=== PATIENT | male | born 1935 | race Caucasian/White ===

== ENCOUNTER 2018-08-04 14:32 | Inpatient (IN) | payer MEDICARE ==
[~2018-08-04] VITALS: Ht 152.4 cm; Wt 107.0 kg
[2018-08-04 14:39] VITALS: BP 127/66
[2018-08-04] MEDS ORDERED: LASIX 40 MG TAB40 M2 PO (14:45)
[2018-08-04] MEDS ORDERED: CARDIZEM CD120 MG PO (14:45)
[2018-08-04] MEDS ORDERED: OMEPRAZOLE 20 M20 M1 PO (14:46)
[2018-08-04] MEDS ORDERED: LOPRESSOR50 PO (14:46)
[2018-08-04] MEDS ORDERED: FLOMAX0.4 MG PO (14:46)
[2018-08-04] MEDS ORDERED: LISINOPRIL20 MG PO (14:46)
[2018-08-04] MEDS ORDERED: METFORMIN HCL500 MG PO (14:46)
[2018-08-04] MEDS ORDERED: SIMVASTATIN40 MG PO (14:46)
[2018-08-04] MEDS ORDERED: XARELTO20 MG PO (14:47)
[2018-08-04] MEDS ORDERED: ASPIR 8181 MG PO (14:47)
[2018-08-04] MEDS ORDERED: POTASSIUM20 PO (14:47)
[2018-08-04] MEDS ORDERED: OMEGA-31000 M1 PO (14:47)
[2018-08-04 15:12] LABS: ABSOLUTE LYMPHOCYTES 0.9 thou/uL (0.8-5.3); ABSOLUTE MONOCYTES 0.5 thou/uL (0.0-1.2); ABSOLUTE NEUTROPHILS 6.6 thou/uL (1.6-8.1); BASOPHILS 0.3 %; EOSINOPHILS 0.6 %; HEMATOCRIT 43.9 % (42.0-52.0); HEMOGLOBIN 14.9 gm/dL (14.0-18.0); LYMPHOCYTES 11.3 %; MCH 31.2 pg (26.0-34.0); MCHC 33.9 g/dL (28.0-37.0); MCV 92.2 fL (80.0-100.0); MONOCYTES 5.9 %; MPV 9.6 fl. (7.2-11.1); NUCLEATED RBCS 0 /100WBC; PLATELET COUNT* 172 thou/uL (150-400); POLYS 81.9 %; RBC 4.76 mil/uL (4.50-6.00); RDW-CV 13.4 % (10.5-14.5)
[2018-08-04 15:20] LABS: ANION GAP 10 mmol/L (7-16); BUN 20 mg/dL (7-18); CALCIUM 9.1 mg/dL (8.5-10.1); CHLORIDE 103 mmol/L (98-107); CO2 25 mmol/L (21-32); CREATININE 1.3 mg/dL (0.6-1.3); GLUCOSE 134 mg/dL (70-99); POTASSIUM 4.3 mmol/L (3.5-5.1); SODIUM 138 mmol/L (136-145)
[2018-08-04 15:22] LABS: APTT 25.2 Seconds (25.0-31.3); PROTIME 10.1 Seconds (9.20-11.50)
[2018-08-04 15:27] LABS: ALKALINE PHOSPHATASE 59 U/L (46-116); LIPASE 85 U/L (73-393); SGOT 21 U/L (15-37); SGPT 20 U/L (30-65); TOTAL BILIRUBIN 0.4 mg/dL (<0.1-1.0); TOTAL PROTEIN 7.5 g/dL (6.4-8.2); TROPONIN-I LEVEL <0.06 ng/mL (<0.06)
[2018-08-04 16:07] LABS: URINE BILIRUBIN NEGATIVE (Negative); URINE BLOOD NEGATIVE (Negative); URINE CLARITY CLEAR; URINE COLOR YELLOW; URINE GLUCOSE-RANDOM NEGATIVE (Negative); URINE KETONES NEGATIVE (Negative); URINE LEUKOCYTES-REFLEX NEGATIVE (Negative); URINE NITRITE-REFLEX NEGATIVE (Negative); URINE PROTEIN NEGATIVE (Negative); URINE SPECIFIC GRAVITY 1.015 (1.005-1.030); URINE UROBILINOGEN 0.2 E.U./dl (0.2-1.0)
[2018-08-04 19:20] VITALS: BP 129/80
[2018-08-04 20:00] VITALS: BP 160/69
[2018-08-05] VITALS: BP 133/95
[2018-08-05 04:00] VITALS: BP 113/58
[2018-08-05 06:08] LABS: ABSOLUTE EOSINOPHILS 0.1 thou/uL (0.0-0.7); ABSOLUTE LYMPHOCYTES 1.3 thou/uL (0.8-5.3); ABSOLUTE MONOCYTES 0.5 thou/uL (0.0-1.2); ABSOLUTE NEUTROPHILS 3.8 thou/uL (1.6-8.1); BASOPHILS 0.4 %; EOSINOPHILS 2.3 %; HEMATOCRIT 40.6 % (42.0-52.0); HEMOGLOBIN 13.5 gm/dL (14.0-18.0); LYMPHOCYTES 22.2 %; MCH 31.1 pg (26.0-34.0); MCHC 33.4 g/dL (28.0-37.0); MCV 93.2 fL (80.0-100.0); MONOCYTES 8.8 %; MPV 9.5 fl. (7.2-11.1); NUCLEATED RBCS 0 /100WBC; PLATELET COUNT* 168 thou/uL (150-400); POLYS 66.3 %; RBC 4.35 mil/uL (4.50-6.00); RDW-CV 13.6 % (10.5-14.5); WBC 5.7 thou/uL (4.0-11.0)
[2018-08-05 06:23] LABS: CALCIUM 8.3 mg/dL (8.5-10.1); CREATININE 1.2 mg/dL (0.6-1.3); MAGNESIUM 1.6 mg/dL (1.8-2.4); PHOSPHORUS* 3.7 mg/dL (2.5-4.9); POTASSIUM 4.1 mmol/L (3.5-5.1)
[2018-08-05 08:00] VITALS: BP 101/66
[2018-08-05 12:11] VITALS: BP 106/50
--- NOTE | 2018-08-05 14:29 | EKG ---
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
[2018-08-05 16:00] VITALS: BP 114/45
--- NOTE | 2018-08-05 16:30 | 2DMMODE ---
[place] [address] 2 D/M-MODE ECHOCARDIOGRAM Name: REMY FRANK Room: [address] IN [facility]#: [id number] Admission: 08/04/18 Attend Phys: Fouzia Mcguire MD Discharge: Date of : 39 Date of Service: 08/05/18 1629 Report #: [id number] THIS REPORT FOR: //name// APPROVED REPORT Study performed: 08/05/2018 13:19:38 EXAM: Comprehensive 2D, Doppler, and color-flow Echocardiogram Patient Location: In-Patient Room #: 201 Status: routine BSA: 2.20 HR: 62 bpm BP: 101/66 mmHg Other Information Study Quality: Fair Indications Atrial Fibrillation 2D Dimensions IVSd: 13.61 (7-11mm) LVOT Diam: 20.66 (18-24mm) LVDd: 55.36 mm PWd: 9.29 (7-11mm) Ascending Ao: 29.34 (22-36mm) LVDs: 27.70 (25-40mm) Aortic Root: 28.25 mm Volumes Left Atrial Volume (Systole) LA ESV Index: 20.00 mL/m2 Aortic Valve AoV Peak Goran.: 1.25 m/s AO Peak Gr.: 6.22 mmHg LVOT Max P.14 mmHg AO Mean Gr.: 3.29 mmHg LVOT Mean P.99 mmHg LVOT Max V: 1.02 m/s AO V2 VTI: 21.99 cm LVOT Mean V: 0.64 m/s NILSA (VTI): 3.46 cm2 LVOT V1 VTI: 22.73 cm Mitral Valve E/A Ratio: 1.02 MV Decel. Time: 221.70 ms MV E Max Goran.: 0.72 m/s MV PHT: 64.29 [place] [address] 2 D/M-MODE ECHOCARDIOGRAM Name: REMY FRANK Room: [address] IN .R.#: [id number] Admission: 08/04/18 Attend Phys: Fouzia Mcguire MD Discharge: Date of : 39 Date of Service: 08/05/18 1629 Report #: [id number] MVA (PHT): 3.42 cm2 TDI E/Lateral E': 12.00 E/Medial E': 8.00 Medial E' Goran.: 0.09 m/s Lateral E' Goran.: 0.06 m/s Pulmonary Valve PV Peak Goran.: 0.88 m/s PV Peak Gr.: 3.10 mmHg Tricuspid Valve RAP Estimate: 5.00 mmHg TR Peak Gr.: 21.01 mmHg RVSP: 26.01 mmHg PA Pressure: 26.01 mmHg Left Ventricle The left ventricle is normal size. There is normal LV segmental wall motion. There is normal left ventricular wall thickness. Left ventricular systolic function is normal. LVEF is 60-65%. Transmitral Doppler flow pattern suggests impaired LV relaxation. Right Ventricle The right ventricle is normal size. The right ventricular systolic function is normal. Atria The left atrium size is normal. The right atrium size is normal. Aortic Valve The aortic valve is normal in structure. No aortic regurgitation is present. There is no aortic valvular stenosis. Mitral Valve The mitral valve is normal in structure. There is no mitral valve regurgitation noted. No evidence of mitral valve stenosis. Tricuspid Valve The tricuspid valve is normal in structure. Mild tricuspid regurgitation. No pulmonary hypertension. Pulmonic Valve The pulmonary valve is normal in structure. There is no pulmonic valvular regurgitation[place] [address] 2 D/M-MODE ECHOCARDIOGRAM Name: REMY FRANK Room: [address] IN [facility]#: [id number] Admission: 08/04/18 Attend Phys: Fouzia Mcguire MD Discharge: Date of : 39 Date of Service: 08/05/18 1629 Report #: [id number] The aortic root is normal in size. IVC is normal in size and collapses >50% with inspiration. Pericardium There is no pericardial effusion. <Conclusion> The left ventricle is normal size. There is normal left ventricular wall thickness. Left ventricular systolic function is normal. LVEF is 60-65%. Transmitral Doppler flow pattern suggests impaired LV relaxation. Mild tricuspid regurgitation. No pulmonary hypertension. IVC is normal in size and collapses >50% with inspiration. <ELECTRONICALLY SIGNED> By: Ish Catherine MD, FACC 08/05/18 1629 1629 1629 Ish Catherine MD, FACC /INF
[2018-08-05 20:00] VITALS: BP 121/48
[2018-08-06] VITALS (18 sets, daily range): BP systolic 98–123; BP diastolic 40–66
[2018-08-06 06:13] LABS: CALCIUM 8.5 mg/dL (8.5-10.1); CREATININE 1.6 mg/dL (0.6-1.3)
--- NOTE | 2018-08-06 10:04 | CON ---
[address] [address] CONSULTATION Name: REMY FRANK Room: [address] IN M.R.#: [id number] Admission: 08/04/18 Attend Phys: Fouzia Mcguire MD Discharge: Date of : 37 Report #: [id number] THIS REPORT FOR: //name// CC: LISA physician/PCP Fouzia Mcguire DATE OF SERVICE: 08/05/2018 HISTORY OF PRESENT ILLNESS: This is an 83-year-old male patient who was evaluated by me for any neurological etiology for the patient's syncope. He indicated that he had an episode of syncope about 3 months ago. He went to [facility]. They told him what he is describing is that the upper portion of his heart is beating too fast and the lower portion cannot keep up with that. He has a known history of atrial fibrillation and I suspect that is what he is describing, although it can also be supraventricular tachycardia. He has already been seen by Cardiology. He does not remember anything about these episodes and there is no firsthand witness who was present, so most of the history is from the records. His lives in a [place] and he was bringing her home, he had some injury to the right leg and then he passed out. He said he had 6 episodes yesterday. Some of the other records indicate that it may be less than that. Does have a history of heart failure, diabetes, hypertension. He denies any prior history of stroke, but he does have atrial fibrillation and he is on chronic anticoagulation for that as I understand. I carried out 14-point review of systems and this patient is not complaining of any new eye, ENT, respiratory, GI, , musculoskeletal, constitutional, dermatological, hematological, psychiatric, throat, allergic symptom associated with present symptomatology. PAST MEDICAL HISTORY: Positive for atrial fibrillation. FAMILY HISTORY: Negative for early age stroke. SOCIAL HISTORY: He does not smoke or drink any alcohol. PHYSICAL EXAMINATION: Indicate that the patient is alert, responsive, able to follow simple and complex command. His speech, concentration, fund of knowledge and memory is at his baseline. Cranial nerve examination 2-12 looks unremarkable. His reflexes are diminished. Otherwise, strength, sensation, reflexes and tone is symmetrical. He is weak in the leg and has some difficulty walking, but he indicates that is his baseline. His pulses on the right side in the leg are difficult to feel, but he indicates he had fracture there and this is going on since that time. No cerebellar sign. I could not have a very good look at the patient's fundus. There is no meningeal sign. He is a well-developed individual who does not have any dysmorphic features of eyes, ears and face. There is no edema, cyanosis or jaundice. Heart appears irregular. There is no respiratory difficulty. [place] [address] CONSULTATION Name: REMY FRANK MICHELET Room: [address] IN M.R.#: [id number] Admission: 08/04/18 Attend Phys: Fouzia Mcguire MD Discharge: Date of : 37 Report #: [id number] rhonchi. Blood pressure is 101/66. Pulse is 84 and temperature is 97.8. LABORATORY DATA: Indicate a white count of 5.7. His sodium is normal. He did have a carotid Doppler that was unremarkable. He did have a CT scan of the head, which showed chronic changes, but no acute changes. He indicates that there is no contraindication for MRI. IMPRESSION: It would appear that the most likely etiology for the patient's symptoms is cardiac. He is already being worked up for that. I think it is reasonable to exclude any neurological etiology, especially because the symptoms are not classical for cardiac etiology either, so I will go ahead and do an MRA in this patient and do an EEG. If that is also negative, then the emphasis should be to look at the Cardiology etiology more in this patient. RECOMMENDATION: I discussed above recommendation with him. He wants to follow that plan and we will follow this recommendation. <ELECTRONICALLY SIGNED> By: Uziel Lidner MD 08/06/18 1004 1154 [id number] Linder MD /nt
--- NOTE | 2018-08-06 10:04 | EEG ---
[address] [address] EEG STUDY REPORT Name: MONIKAREMY Room: [address] IN M.R.#: [id number] Admission: 08/04/18 Attend Phys: Fouzia Mcguire MD Discharge: Date of : 37 Report #: [id number] THIS REPORT FOR: //name// CC: FAM physician/PCP Fouzia Mcguire DATE OF SERVICE: 08/05/2018 This patient is being evaluated for episodes of syncope. EEG was done by placing the electrode by standard 10-20 system of electrode placement. Both referential and sequential montages were used for recording. Background activity in this patient's EEG is about 11 Hz and 30 microvolt. It is a symmetrical activity. Photic stimulation was unremarkable. The patient went to sleep that is associated with bilaterally symmetrical sleep spindle and vertex sharp waves. Throughout the record, no active epileptiform activity was noticed. IMPRESSION: This patient's EEG is intermixed with some theta range slowing. That is a nonspecific finding which can occur with drowsiness, effect of psychotropic medication, dementia, etc. No active epileptiform activity was noticed during this record. Thank you very much for this referral. <ELECTRONICALLY SIGNED> By: Uziel Linder MD 08/06/18 1004 1619 Marianna Linder MD /jaleesa
[2018-08-07] VITALS (7 sets, daily range): BP systolic 112–132; BP diastolic 40–50
[2018-08-07 04:55] LABS: CALCIUM 8.2 mg/dL (8.5-10.1); CREATININE 1.5 mg/dL (0.6-1.3); POTASSIUM 4.2 mmol/L (3.5-5.1)
[2018-08-07] MEDS ORDERED: FLECAINIDE ACET50 M2 PO (16:55)
--- NOTE | 2018-08-07 17:17 | PROC ---
[address] [address] PROCEDURE REPORT Name: REMY FRANK Room: [address] IN M.R.#: [id number] Admission: 08/04/18 Attend Phys: Fouzia Mcguire MD Discharge: Date of : 37 Report #: [id number] THIS REPORT FOR: //name// CC: LISA physician/PCP Fouzia Mcguire DATE OF SERVICE: 08/06/2018 INDICATIONS: Head upright tilt table test was requested in this patient with a history of syncope. RESULTS: The patient was placed supine on the tilt table and had a pretest heart rate of 62, blood pressure 98/46. ECG monitoring was performed throughout the procedure. The initial rhythm strip represented sinus rhythm. The patient was then placed in the head upright position at 70 degrees. He remained in this position for 20 minutes. The blood pressure and heart rate remained stable and the patient remained in sinus rhythm with occasional PACs. After 20 minutes, the blood pressure was 100/55 with a heart rate of 64. The patient was then administered nitroglycerin 0.4 mg sublingually. Five minutes later, the patient had a blood pressure of 105/50 with pulse of 58 and was noted to be sinus bradycardia. The patient was then noted to develop sinus bradycardia and had a prolonged pause. He became less responsive and blood pressure noted to be less than 100 systolic. The patient was then placed back into the supine position and had a blood pressure 116/48 with a pulse of 58. The patient was awake and alert at this time. IMPRESSION: 1. Abnormal head upright tilt table test suggestive of neurocardiogenic syncope. 2. Although the patient did not have loss of consciousness, he became less responsive and drowsy during the test. 3. The response was predominantly a negative chronotropic response with a prolonged pause. 4. The patient did develop hypotension after nitroglycerin, suggesting a vaso-depressed response. <ELECTRONICALLY SIGNED> By: Eder Vanegas MD, FACC 08/07/18 1717 1652 [id number] Vanegas MD, FACC /nt
== END 2018-08-07 18:29 | disposition home or self-care (01) | DRG 605 ==
LOC: M.ERS 14:32 → M.2W 16:04 → M.TBA-ER 16:04 → M.2W 19:50
PROVIDERS: Family Medicine; ADMIT Family Medicine
PROC: 0HQLXZZ Repair Left Lower Leg Skin, External Approach (ICD-10-PCS; 2018-08-04)
PROC: 4A02XFZ Measurement of Cardiac Rhythm, External Approach (ICD-10-PCS; principal; 2018-08-07)
PROC: 4A03XB1 Measurement of Arterial Pressure, Peripheral, External Approach (ICD-10-PCS; principal; 2018-08-07)
DX: S81.811A Laceration without foreign body, right lower leg, initial encounter (principal); I13.0 Hypertensive heart and chronic kidney disease with heart failure and stage 1 through stage 4 chronic kidney disease, or unspecified chronic kidney disease; I50.32 Chronic diastolic (congestive) heart failure; K21.9 Gastro-esophageal reflux disease without esophagitis; E11.22 Type 2 diabetes mellitus with diabetic chronic kidney disease; N18.3 Chronic kidney disease, stage 3 (moderate); I48.2 Chronic atrial fibrillation; G47.33 Obstructive sleep apnea (adult) (pediatric); E83.42 Hypomagnesemia; Z79.01 Long term (current) use of anticoagulants; Z79.899 Other long term (current) drug therapy; Z23 Encounter for immunization; Z83.3 Family history of diabetes mellitus; X58.XXXA Exposure to other specified factors, initial encounter; Y93.89 Activity, other specified; Y92.89 Other specified places as the place of occurrence of the external cause; Y99.8 Other external cause status

== ENCOUNTER 2018-08-14 13:45 | Inpatient (IN) | payer MEDICARE ==
[~2018-08-14] VITALS: Ht 175.3 cm; Wt 100.5 kg
--- NOTE | ~2018-08-14 | PROC ---
[address] [address] PROCEDURE REPORT Name: REMY FRANK Room: [address] IN M.R.#: [id number] Admission: 08/14/18 Attend Phys: Eder Vanegas MD, F Discharge: 08/16/18 Date of : 37 Report #: [id number] THIS REPORT FOR: //name// Please see the Cardiac Cath report. By: [id number] Records Staff DEEPA /JOSE ENRIQUE
[~2018-08-14 13:45] MED LIST: ASPIR 8181 MG PO; CARDIZEM CD120 MG PO; FLECAINIDE ACET50 M2 PO; FLOMAX0.4 MG PO; LASIX 40 MG TAB40 M2 PO; LISINOPRIL20 MG PO; LOPRESSOR50 PO; METFORMIN HCL500 MG PO; OMEGA-31000 M1 PO; OMEPRAZOLE 20 M20 M1 PO; POTASSIUM20 PO; SIMVASTATIN40 MG PO; XARELTO20 MG PO
[2018-08-14 16:48] VITALS: BP 126/60
--- NOTE | 2018-08-14 17:36 | EKG ---
[place] [address] ELECTROCARDIOGRAM REPORT Name: MONIKAREMY Room: [address] ADM IN M.R.#: [id number] Admission: 08/14/18 Attend Phys: Eder Vanegas MD, F Discharge: Date of : 37 Report #: [id number] THIS REPORT FOR: //name// [facility] Test Date: 2018-08-14 Test Time: 15:16:50 Pat Name: REMY FRANK Department: Room: [address] Gender: M Mold Shifter: [facility] : 1935 Requested By: Eder Vanegas Order Number: [id number] Reading MD: Ish Catherine Measurements Intervals [place] Rate: 69 P: NV: QRS: 24 QRSD: 102 T: 27 QT: 499 QTc: 535 Interpretive Statements Atrial flutter with predominant 4:1 AV block Borderline prolonged QT interval Compared to ECG 08/04/2018 14:43:46 Atrial fibrillation no longer present Electronically Signed On 08-14-2018 17:36:17 OFFICE RN by Ish Catherine [email or web address] <ELECTRONICALLY SIGNED> By: Ish Catherine MD, [facility] 08/14/18 1736 1516 1516 Ish Catherine MD, [facility] /EPI
[2018-08-14 20:00] VITALS: BP 115/74
[2018-08-15] VITALS: BP 97/51
[2018-08-15 04:00] VITALS: BP 109/43
[2018-08-15 05:20] LABS: URINE BILIRUBIN NEGATIVE (Negative); URINE BLOOD NEGATIVE (Negative); URINE CLARITY CLEAR; URINE COLOR YELLOW; URINE GLUCOSE-RANDOM NEGATIVE (Negative); URINE KETONES NEGATIVE (Negative); URINE LEUKOCYTES NEGATIVE (Negative); URINE NITRITE NEGATIVE (Negative); URINE PROTEIN NEGATIVE (Negative)
[2018-08-15 05:38] LABS: CALCIUM 8.3 mg/dL (8.5-10.1); CREATININE 1.3 mg/dL (0.6-1.3); POTASSIUM 4.2 mmol/L (3.5-5.1)
[2018-08-15 08:18] VITALS: BP 112/46
[2018-08-15 12:29] VITALS: BP 118/53
--- NOTE | 2018-08-15 12:30 | EKG ---
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
[2018-08-15 15:34] VITALS: BP 118/53
--- NOTE | 2018-08-15 15:37 | H ---
[address] [address] HISTORY AND PHYSICAL Name: MONIKAREMY Room: [address] IN Eva.#: [id number] Admission: 08/14/18 Attend Phys: Eder Vanegas MD, F Discharge: Date of : 37 Report #: [id number] THIS REPORT FOR: //name// CC: Eder Del Valle MD DATE OF SERVICE: 08/14/2018 HISTORY OF PRESENT ILLNESS: The patient is an 83-year-old white male who was admitted today after he had a long sinus pause. The history was obtained from the patient as well as his son and some old records. The patient had no previous history of heart disease. He apparently had a stress test years ago. He does exercise on a regular basis. Apparently about 7 months ago, he saw his primary care physician and was noted to have a rapid heartbeat. He apparently was noted to be having atrial fibrillation. He was started on Xarelto and diltiazem for rate control. He was referred to a intelligence manager, but never got around to seeing a intelligence manager. Over the past couple of months, he has had several syncopal spells. The first occurred about 2 months ago when he became diaphoretic, had a brief loss of consciousness. He was taken to [facility] and sent home. Last 08/04, he was apparently on his driveway. He apparently struck his foot against the car door and began to bleed. He then became nauseated with brief loss of consciousness. He apparently fell to the ground. There is no seizure activity. He was brought here to [place] and admitted. He was seen by my nurse practitioner, Val Rodriguez. He underwent an extensive evaluation. He did have a tilt table test and had a negative chronotropic response. He also had an episode of atrial arrhythmia. He was taken off metoprolol and started on flecainide. He was sent home with an event recorder. On the event recorder today, the patient was noted to have an episode of atrial flutter with a controlled ventricular response. He then had a pause lasting over 6 seconds. Sinus bradycardia then returned. He was told to come to the hospital for further evaluation and treatment. Since his discharge 10 days ago, he has had no significant chest pain, shortness of breath, palpitations, fever. PAST MEDICAL HISTORY: Significant for previous removal of skin cancer. He has hypertension, diabetes, hyperlipidemia, sleep apnea, chronic kidney disease. MEDICATIONS: Consists of furosemide for chronic swelling, Cardizem-CD, Flomax, metformin, omeprazole, simvastatin, Xarelto, potassium, flecainide. ALLERGIES: He has no known drug allergies. FAMILY HISTORY: His mother had a heart attack. SOCIAL HISTORY: He is . He and his live in [place], 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 No smoking or alcohol abuse. REVIEW OF SYSTEMS: He has had no history of stroke, asthma, peptic ulcer disease, liver disease. He had a skin cancer removed in the past. No psychiatric illness. No chronic skin condition. He does have chronic swelling of his feet. PHYSICAL EXAMINATION: GENERAL: Revealed an elderly male, lying in bed. He appeared in no distress. VITAL SIGNS: He had a blood pressure of 120/60, pulse 60. He is afebrile. HEENT: He is anicteric. Conjunctivae pink. Mucous membranes moist. NECK: Veins do not appear distended. No carotid bruits. CHEST: Clear to auscultation. CARDIOVASCULAR: Irregular rhythm. ABDOMEN: Soft. EXTREMITIES: Had pitting edema of the lower extremities. SKIN: Cool and dry. NEUROLOGIC: Nonfocal. ECG appeared to show atrial flutter with controlled ventricular response rate. His workup, he had a CT scan of the head done 10 days ago without contrast after a syncopal spell that showed atrophy, but no other abnormalities. His chest x-ray showed normal heart size and clear lung jade. He had a CT scan of the chest using a PE protocol that showed no aortic dissection, no pulmonary embolus, chronic lung changes. Carotid Doppler study showed no significant stenosis. MRI of the head without contrast showed chronic changes, no acute abnormality. LABORATORY DATA: Sodium 140, BUN 23, creatinine 1.5, glucose 107. Liver function studies were normal. TSH 1.6. White blood cell count 5.7, hemoglobin 13.5. Recent urinalysis is negative for glucose, negative leukocytes. Echocardiogram done 10 days ago showed ejection fraction of 60%. IMPRESSION AND RECOMMENDATIONS: 1. Intermittent atrial arrhythmias. The patient has been on flecainide. I would hold the Xarelto for pacemaker. 2. Sick sinus syndrome. The patient with recurrent syncope and pause lasting over 6 seconds. Recommend permanent pacemaker. 3. Hypertension. The patient has been on a calcium chuck and XIMENA inhibitor. 4. Diabetes. 5. Hyperlipidemia. The patient is on a statin drug. [place] [address] [address] HISTORY AND PHYSICAL Name: REMY FRANK Room: [address] IN M.R.#: [id number] Admission: 08/14/18 Attend Phys: Eder Vanegas MD, F Discharge: Date of : 37 Report #: [id number] 6. Sleep apnea. The patient uses CPAP. 7. Chronic edema. Suspect venous insufficiency. <ELECTRONICALLY SIGNED> By: Eder Vanegas MD, FACC 08/15/18 1537 1717 1841Davianh Vanegas MD, FACC /nt
[2018-08-15 20:00] VITALS: BP 142/55
[2018-08-16] VITALS: BP 132/52
[2018-08-16 04:00] VITALS: BP 113/49
[2018-08-16 08:03] VITALS: BP 120/52
[2018-08-16] MEDS ORDERED: DEMADEX20 MG PO (09:47)
[2018-08-16] MEDS ORDERED: KLOR-CON 1010 MEQ PO (09:48)
--- NOTE | 2018-08-16 10:16 | EKG ---
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
--- NOTE | 2018-08-16 10:19 | CARD ---
[address] [address] CARDIAC CATH REPORT Name: REMY FRANK MICHELET Room: [address] IN .#: [id number] Admission: 08/14/18 Attend Phys: Eder Vanegas MD, F Discharge: Date of : 37 Report #: [id number] THIS REPORT FOR: //name// APPROVED REPORT Study performed: 08/15/2018 12:06:49 Patient Status: In-Patient Room #: Event Personnel: Emily Vora RN, SHAWN Lea, Melva Lamar, RTR Exam: Insertion of Dual Chamber Permanent Pacemaker Indications: Sick Sinus Syndrome/Tachy Ricki Syndrome The patient is a 83 year-old male with a history of Syncope. Patient Info Anticoagulant Therapy: xarelto Implanted Devices: dual chamber mri compatible dual chamber pacemaker and leads Procedure The patient underwent informed consent. We discussed the details of the procedure including the risks, which include, but not limited to bleeding, infection, vascular damage, cardiac perforation, and pneumothorax. He understood these risks and was willing to proceed. As such, he was brought to the EP/Cardiac Catheterization laboratory in a fasting and sedated state and prepped and draped in a sterile fashion, received IV antibiotics prior to initiation of the procedure and a venogram was performed showing patency of the left axillary vein. The patient underwent MAC anesthesia, with no anesthesia related complications. The patient was brought to the EP/Cardiac Catheterization laboratory and the left chest and shoulder were prepped and draped in a sterile manner. During this case, Fluoroscopy and visipaque 10cc were used for imaging. The left subclavian region was infiltrated with 2% Lidocaine with Epinephrine subcutaneous anesthesia. A transverse incision was made in the left upper chest cavity. The subcutaneous pocket was formed via blunt dissection. Percutaneous venous access was achieved and an introducer sheath was inserted into the left Subclavian vein. Sheaths were positions using the modified [place] [address] CARDIAC CATH REPORT Name: REMY FRANK Room: [address] IN [facility].#: [id number] Admission: 08/14/18 Attend Phys: Eder Vanegas MD, F Discharge: Date of : 37 Report #: [id number] Through the introducer sheaths the atrial and ventricular lead wires were positioned in the right atrial appendage and right ventricular apex respectively. Utilizing fluoroscopic guidance, the atrial and ventricular lead wires were advanced over the wires and positioned in the right atria and right ventricle respectively. Capturing and sensing thresholds were verified. Pacemaker pocket was irrigated with D-stat flowable solution prior to inserting the generator Electrode Parameters P Wave: 1.8 mv R Wave: 9 mv Atrial Threshold: 1.1 v @ 0.4 ms Ventricular Threshold: 1.0 v @ 0.4 ms Atrial Resistance: 448 ohm Ventricular Resistance: 585 ohm Dual Chamber The atrial and ventricular leads were then secured using 0 silk sutures. The subcutaneous pocket was irrigated with ancef antibiotic solution.The atrial and ventricular leads were attached to the appropriate receptacles on the pulse generator and set screws firmly tightened to insure adequate contact and stability. The lead and pulse generator were placed into the subcutaneous pocket. Sharp and sponge counts were confirmed to be correct. At this time the pocket was closed subcutaneously with a 0 Vicryl and the skin was closed with a 4.0 Vicryl. The operative site was dressed in sterile fashion with skin affix and the patient was transferred to the floor in stable condition. Complications The patient tolerated the procedure well and there were no complications associated with the procedure. Findings Specimens Removed: No Estimated Blood Loss: 5 cc Conclusion successful placement of a dual chamber pacemaker and leads <ELECTRONICALLY SIGNED> By: Eder Vanegas MD, [facility] 08/16/18 1019 1019 [id number] Vanegas MD, FACC /INF
--- NOTE | 2018-08-16 10:37 | D ---
[address] [address] DISCHARGE SUMMARY Name: REMY FRANK Room: [address] IN [place].#: [id number] Admission: 08/14/18 Attend Phys: Eder Vanegas MD, F Discharge: Date of : 37 Report #: [id number] THIS REPORT FOR: //name// CC: Eder Del Valle MD DATE OF SERVICE: 08/16/2018 DISCHARGE DIAGNOSES: 1. Atrial flutter. 2. Sick sinus syndrome. 3. Diabetes. 4. Hypertension. 5. Venous stasis. 6. Sleep apnea. CONSULTANTS: None. PROCEDURES: Placement of a permanent dual chamber pacemaker. HISTORY OF PRESENT ILLNESS: The patient is an 83-year-old white male who was admitted after he was noted to have a long sinus pause on his home monitor. Apparently several months ago, the patient saw his primary care physician and was noted to have a rapid heartbeat. He was started on Xarelto and diltiazem for his heart rate. Recently, the patient has had several syncopal spells. At one point, he was actually taken to the Emergency Room at [place] and sent home. On 08/04/2018, he was on his driveway, he struck his left leg against the car door, which began to bleed. He then had a brief loss of consciousness. He was admitted to [facility] and saw my nurse practitioner, Val Case. A tilt table test, he had near syncope with a negative chronotropic response and a long pause. During his hospitalization, he also had an episode of atrial fibrillation. He was taken off of metoprolol and started on flecainide. He was sent home last week with an event recorder. On the day of admission, the event recorder noticed an episode of atrial flutter with controlled response. He then had a pause lasting over 6 seconds. He was instructed to come to the hospital for further evaluation and treatment. PAST MEDICAL HISTORY: Significant for previous removal of a skin cancer, hypertension, diabetes, hyperlipidemia, sleep apnea, chronic kidney disease, chronic venous stasis. MEDICATIONS: At home consisted of Cardizem-CD, flecainide, lisinopril, metformin, omeprazole, Xarelto, simvastatin, and Flomax. He is no longer on metoprolol, and [place] [address] DISCHARGE SUMMARY Name: REMY FRANK MICHELET Room: [address]#: [id number] Admission: 08/14/18 Attend Phys: Eder Vanegas MD, F Discharge: Date of : 37 Report #: [id number] ALLERGIES: He had no known drug allergies. PHYSICAL EXAMINATION: GENERAL: Elderly male. VITAL SIGNS: Blood pressure 120/60, pulse 60. CHEST: Clear to auscultation. CARDIAC: Irregular rhythm. ABDOMEN: Soft. EXTREMITIES: Lower extremities had pitting edema. DIAGNOSTIC DATA: ECG, atrial flutter with controlled response. CT scan of the head done recently showed only atrophy. Chest x-ray, normal heart size. Carotid Doppler, no significant stenosis. LABORATORY DATA: Sodium 140, BUN 23, creatinine 1.5. Liver function studies were normal. TSH 1.6. Hemoglobin 13.5. Echocardiogram, ejection fraction 60%. HOSPITAL COURSE: The patient was admitted to a monitored bed. On admission, he was noted to be in atrial flutter. He was then continued on his flecainide, although dose was increased to 100 mg twice a day. He converted to sinus rhythm. He did have a pause while on the monitor at the hospital, lasting 1.6 seconds. 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 His Xarelto was held. On the second hospital day, he was taken to the Interventional Radiology room and I implanted a permanent MRI compatible dual chamber Medtronic pacemaker generator with atrial and ventricular leads. He tolerated the procedure well. Followup chest x-ray showed no pneumothorax. He remained atrial paced at 70 beats per minute. Prior to discharge, he was ambulating, had no further complaints. He was discharged to continue his home medications including Cardizem-CD 180 mg a day, flecainide was increased to 100 mg twice a day, lisinopril 20 mg a day, metformin 500 mg twice a day, omeprazole 20 mg a day. He was not to resume his Xarelto 20 mg a day until 48 hours after the pacemaker was inserted. Simvastatin 40 mg a day, Flomax 0.4 mg a day, Lasix 20 mg a day, potassium 20 mEq a day. He was discharged to return under the care of Dr. Del Valle for routine medical care including management of his diabetes. He is not to lift the left arm above his head. He was sent home with a transmitter to check his pacemaker from home every night at 2:00 a.m. He was not to shower for 48 hours after the pacemaker was placed. Skin Affix was placed over the incision. He was to call my office if he had recurrent syncope, palpitations, bleeding or evidence of infection. He is scheduled to see me in the Cardiology Clinic on 09/04/2018 for pacemaker followup. His prognosis is guarded due to his multiple medical problems. At the time of discharge, he was ambulating with assistance and had a [facility] [address] [place] [address] DISCHARGE SUMMARY Name: REMY FRANK Room: [address] IN [facility]#: [id number] Admission: 08/14/18 Attend Phys: Eder Vanegas MD, F Discharge: Date of : 37 Report #: [id number] blood pressure of 110/60, pulse is 80 and he was atrial paced. He was to have a visiting nurse come to the home to check on his medication compliance. <ELECTRONICALLY SIGNED> By: Eder Vanegas MD, FACC 08/16/18 1037 0859 [id number] Vanegas MD, FACC /nt
[2018-08-16] MEDS ORDERED: ACETAMINOPHEN-1 EAC1 PO (11:19)
--- NOTE | 2018-08-22 12:33 | EKG ---
[place] [address] ELECTROCARDIOGRAM REPORT Name: REMY FRANK Room: [address] IN M.R.#: [id number] Admission: 08/14/18 Attend Phys: Eder Vanegas MD, F Discharge: 08/16/18 Date of : 37 Report #: [id number] THIS REPORT FOR: //name// [facility] ED Test Date: 2018-08-20 Test Time: 15:42:06 Pat Name: REMY FRANK Department: Room: Gender: Cone Cleaner: Cristopher VALDES : 1935 Requested By: Pee Espinosa Order Number: [id number] MD: Fausto Rivera Measurements Intervals [place] Rate: 79 P: MO: 201 QRS: 17 QRSD: 99 T: 61 QT: 376 QTc: 432 Interpretive Statements Atrial-paced rhythm Baseline wander in lead(s) I Compared to ECG 08/16/2018 07:38:33 Atrial premature complex(es) no longer present Electronically Signed On 08-22-2018 12:33:33 MEAT TEAM MEMBER by Fausto Rivera [email or web address] <ELECTRONICALLY SIGNED> By: Fausto Rivera MD, FACC 08/22/18 1233 1542 1542 Fausto Rivera MD, FAC /EPI
== END 2018-08-16 13:44 | disposition home health service (06) | DRG 243 ==
LOC: M.2W 13:45
PROVIDERS: ADMIT Internal Medicine Cardiovascular Disease
PROC: 02HK3JZ Insertion of Pacemaker Lead into Right Ventricle, Percutaneous Approach (ICD-10-PCS; principal; 2018-08-15)
PROC: 02H63JZ Insertion of Pacemaker Lead into Right Atrium, Percutaneous Approach (ICD-10-PCS; principal; 2018-08-15)
PROC: B51N1ZZ Fluoroscopy of Left Upper Extremity Veins using Low Osmolar Contrast (ICD-10-PCS; principal; 2018-08-15)
PROC: 0JH606Z Insertion of Pacemaker, Dual Chamber into Chest Subcutaneous Tissue and Fascia, Open Approach (ICD-10-PCS; principal; 2018-08-15)
DX: I49.5 Sick sinus syndrome (principal); I48.92 Unspecified atrial flutter; D68.69 Other thrombophilia; E78.5 Hyperlipidemia, unspecified; N18.9 Chronic kidney disease, unspecified; E11.22 Type 2 diabetes mellitus with diabetic chronic kidney disease; I12.9 Hypertensive chronic kidney disease with stage 1 through stage 4 chronic kidney disease, or unspecified chronic kidney disease; I48.91 Unspecified atrial fibrillation; I49.9 Cardiac arrhythmia, unspecified; I87.2 Venous insufficiency (chronic) (peripheral); Z82.49 Family history of ischemic heart disease and other diseases of the circulatory system

== ENCOUNTER 2018-08-20 15:40 | Emergency (ER) | payer MEDICARE ==
[~2018-08-20] VITALS: Ht 175.3 cm; Wt 101.4 kg
[~2018-08-20 15:40] MED LIST changes: +ACETAMINOPHEN-1 EAC1 PO; +DEMADEX20 MG PO; +KLOR-CON 1010 MEQ PO
[2018-08-20 15:53] LABS: ABSOLUTE BASOPHILS 0.1 thou/uL (0.0-0.2); ABSOLUTE EOSINOPHILS 0.2 thou/uL (0.0-0.7); ABSOLUTE LYMPHOCYTES 1.8 thou/uL (0.8-5.3); ABSOLUTE MONOCYTES 0.7 thou/uL (0.0-1.2); BASOPHILS 1.2 %; EOSINOPHILS 3.4 %; HEMATOCRIT 39.7 % (42.0-52.0); HEMOGLOBIN 13.5 gm/dL (14.0-18.0); LYMPHOCYTES 26.5 %; MCH 31.5 pg (26.0-34.0); MCHC 33.9 g/dL (28.0-37.0); MCV 92.7 fL (80.0-100.0); MONOCYTES 9.7 %; MPV 9.7 fl. (7.2-11.1); NUCLEATED RBCS 0 /100WBC; PLATELET COUNT* 192 thou/uL (150-400); POLYS 59.2 %; RBC 4.29 mil/uL (4.50-6.00); RDW-CV 13.2 % (10.5-14.5); WBC 6.7 thou/uL (4.0-11.0)
[2018-08-20 16:03] LABS: ANION GAP 4 mmol/L (7-16); BUN 22 mg/dL (7-18); CALCIUM 8.8 mg/dL (8.5-10.1); CHLORIDE 107 mmol/L (98-107); CO2 31 mmol/L (21-32); CREATININE 1.3 mg/dL (0.6-1.3); GLUCOSE 90 mg/dL (70-99); POTASSIUM 4.4 mmol/L (3.5-5.1); SODIUM 142 mmol/L (136-145)
[2018-08-20 16:19] LABS: APTT 35.2 Seconds (25.0-31.3); INR 1.2; PROTIME 12.4 Seconds (9.20-11.50)
[2018-08-20 16:21] LABS: ALBUMIN 3.5 g/dL (3.4-5.0); ALKALINE PHOSPHATASE 66 U/L (46-116); CK-MB MASS 1.1 ng/mL (<0.5-3.6); LIPASE 89 U/L (73-393); MAGNESIUM 1.7 mg/dL (1.8-2.4); NT-PRO BRAIN NAT PEPTIDE 77 pg/mL (<300); SGOT 15 U/L (15-37); SGPT 12 U/L (30-65); TOTAL BILIRUBIN 0.3 mg/dL (<0.1-1.0); TOTAL PROTEIN 6.9 g/dL (6.4-8.2); TROPONIN-I LEVEL <0.06 ng/mL (<0.06)
[2018-08-20 18:07] VITALS: BP 146/65
== END 2018-08-20 18:09 | disposition home or self-care (01) ==
LOC: M.ERS 15:40
PROVIDERS: Family Medicine
DX: R07.89 Other chest pain (principal); E11.22 Type 2 diabetes mellitus with diabetic chronic kidney disease; N18.3 Chronic kidney disease, stage 3 (moderate); I50.9 Heart failure, unspecified

== ENCOUNTER 2019-02-09 10:06 | Inpatient (IN) | payer MEDICARE ==
[2019-02-09] VITALS (8 sets, daily range): BP systolic 100–145; BP diastolic 52–67
[~2019-02-09] VITALS: Ht 167.6 cm; Wt 98.7 kg
[~2019-02-09 10:06] MED LIST changes: +FLECAINIDE ACE100 MG PO; -FLECAINIDE ACET50 M2 PO
[2019-02-09] MEDS ORDERED: LASIX 40 MG TAB40 M2 PO (10:19)
[2019-02-09] MEDS ORDERED: LOPRESSOR50 PO (10:20)
[2019-02-09 10:39] LABS: ABSOLUTE EOSINOPHILS 0.1 thou/uL (0.0-0.7); ABSOLUTE LYMPHOCYTES 1.1 thou/uL (0.8-5.3); ABSOLUTE MONOCYTES 0.4 thou/uL (0.0-1.2); ABSOLUTE NEUTROPHILS 4.4 thou/uL (1.6-8.1); BASOPHILS 0.3 %; EOSINOPHILS 1.4 %; HEMATOCRIT 42.2 % (42.0-52.0); HEMOGLOBIN 14.2 gm/dL (14.0-18.0); LYMPHOCYTES 17.6 %; MCH 30.9 pg (26.0-34.0); MCHC 33.8 g/dL (28.0-37.0); MCV 91.5 fL (80.0-100.0); MONOCYTES 7.5 %; MPV 8.9 fl. (7.2-11.1); NUCLEATED RBCS 0 /100WBC; PLATELET COUNT* 162 thou/uL (150-400); POLYS 73.2 %; RBC 4.61 mil/uL (4.50-6.00); RDW-CV 13.7 % (10.5-14.5)
[2019-02-09 10:51] LABS: APTT 34.3 Seconds (25.0-31.3); INR 1.1; PROTIME 11.6 Seconds (9.20-11.50)
[2019-02-09 10:59] LABS: ANION GAP 8 mmol/L (7-16); BUN 19 mg/dL (7-18); CHLORIDE 105 mmol/L (98-107); CO2 27 mmol/L (21-32); CREATININE 1.2 mg/dL (0.6-1.3); GLUCOSE 127 mg/dL (70-99); POTASSIUM 4.7 mmol/L (3.5-5.1); SODIUM 140 mmol/L (136-145)
[2019-02-09 11:04] LABS: ALBUMIN 3.7 g/dL (3.4-5.0); ALKALINE PHOSPHATASE 63 U/L (46-116); LIPASE 70 U/L (73-393); SGOT 15 U/L (15-37); SGPT 18 U/L (30-65); TOTAL BILIRUBIN 0.4 mg/dL (<0.1-1.0); TOTAL PROTEIN 7.1 g/dL (6.4-8.2); TROPONIN-I LEVEL <0.06 ng/mL (<0.06)
--- NOTE | 2019-02-09 15:17 | EKG ---
[place] [address] ELECTROCARDIOGRAM REPORT Name: MONIKARACHEAL Room: [address] ADM IN M.R.#: [id number] Admission: 02/09/19 Attend Phys: Josafat Ramirez MD Discharge: Date of : 37 Report #: [id number] THIS REPORT FOR: //name// [facility] ED Test Date: 2019-02-09 Test Time: 10:31:02 Pat Name: RACHEAL FRANK Department: Room: [facility] Gender: [employer] Laminating Operator: : 1935 Requested By: Trev Nesbitt Order Number: [id number] MD: Eder Vanegas Measurements Intervals [place] Rate: 72 P: 36 MO: 117 QRS: -49 QRSD: 180 T: 89 QT: 495 QTc: 542 Interpretive Statements ventricular paced rhythm atrial fibrillation No further analysis attempted due to paced rhythm Baseline wander in lead(s) II,III,aVF Compared to ECG 08/20/2018 15:42:06 Atrial-paced complex(es) or rhythm no longer present Electronically Signed On 02-09-2019 15:17:17 CDT by Eder Vanegas [email or web address] <ELECTRONICALLY SIGNED> By: Eder Vanegas MD, [facility] 02/09/19 1517 1031 1031 Eder Vanegas MD, FAC /EPI
--- NOTE | 2019-02-09 18:12 | NUR ---
ASSUMED PT CARE AT 1230, PT FROM ER, PT SITUATED TO ROOM. ADMISSION ASSESSMENT DONE. RECONCILED MEDS AOX4, SBA, O2 SAT 90'S RA. TRACING SR ON OPHTHALMIC MEDICAL ASSISTANT. PT COMPLAINS OF DIZZINESS. PT FOR ACCU CHECK. PT HAS PACEMAKER EDEMA ON BILATERAL FEET NOTED. LAST BM 02/08/19. ABDOMEN SOFT AND ROUND.PT ORTHOSTATIC BP CHECKED. HOURLY ROUNDING, CALL LIGHT WITHIN REACH. WILL CONTINUE TO MONITOR.
--- NOTE | 2019-02-09 19:00 | NUR ---
I HAVE REVIEWED AND AGREE WITH THE ASSESMENT AND NOTE OF RUBIA Dhaliwal RN ON 02/09/19. PT TO HAVE CARDIOVERSION TOMORROW. PT DOES C/O SOME DIZZYNESS. BED ALARM ON. PT CALLS APPROPRIALTY FOR NEEDS
[2019-02-10] VITALS (7 sets, daily range): BP systolic 97–151; BP diastolic 48–81
--- NOTE | 2019-02-10 02:34 | NUR ---
PT ALERT ORIENTED. UP WITH STAND BY ASSIST. INITAL ASSESSMENT PT IN AFIB. SR AT 2400. NPO AT MN FOR POSSIBLE CARDIOVERSION.
[2019-02-10 05:38] LABS: ABSOLUTE EOSINOPHILS 0.1 thou/uL (0.0-0.7); ABSOLUTE LYMPHOCYTES 1.2 thou/uL (0.8-5.3); ABSOLUTE MONOCYTES 0.4 thou/uL (0.0-1.2); ABSOLUTE NEUTROPHILS 3.1 thou/uL (1.6-8.1); BASOPHILS 0.3 %; EOSINOPHILS 3.1 %; HEMATOCRIT 37.9 % (42.0-52.0); HEMOGLOBIN 12.8 gm/dL (14.0-18.0); LYMPHOCYTES 25.5 %; MCH 30.9 pg (26.0-34.0); MCHC 33.7 g/dL (28.0-37.0); MCV 91.7 fL (80.0-100.0); MONOCYTES 8.1 %; MPV 9.4 fl. (7.2-11.1); NUCLEATED RBCS 0 /100WBC; PLATELET COUNT* 169 thou/uL (150-400); RBC 4.13 mil/uL (4.50-6.00); RDW-CV 13.9 % (10.5-14.5); WBC 4.9 thou/uL (4.0-11.0)
[2019-02-10 05:43] LABS: ANION GAP 6 mmol/L (7-16); BUN 21 mg/dL (7-18); CALCIUM 8.6 mg/dL (8.5-10.1); CHLORIDE 108 mmol/L (98-107); CHOLESTEROL 95 mg/dL (<200); CO2 27 mmol/L (21-32); CREATININE 1.3 mg/dL (0.6-1.3); GLUCOSE 174 mg/dL (70-99); HDL CHOLESTEROL 28 mg/dL (>40); LDL CHOLESTEROL 33 mg/dL (<100); POTASSIUM 4.2 mmol/L (3.5-5.1); SODIUM 141 mmol/L (136-145); TC:HDL 3.4 Ratio (Not establshd); TRIGLYCERIDE 170 mg/dL (<150); VLDL 34 mg/dL (<40)
[2019-02-10 05:59] LABS: SERUM ASSESSMENT Clear
[2019-02-10 12:08] LABS: GLYCOHEMOGLOBIN (HGB A1C) 5.9 % (4.8-5.6)
--- NOTE | 2019-02-10 15:12 | NUR ---
Pt is A&O. Resides at home with his , to be discharged to [facility] today. Pt is active and independent. Sleeps with a cpap at night. Hx of [facility]. No hx of SNF. Supportive children that are invovled in POC and plan to stay with Pt/ for a couple of weeks. Goal is home at [place]. If HH ordered, Pt wants to use [facility] again. Following.
--- NOTE | 2019-02-10 15:38 | EKG ---
[place] [address] ELECTROCARDIOGRAM REPORT Name: RACHEAL FRANK Room: [address] ADM IN M.R.#: [id number] Admission: 02/09/19 Attend Phys: Josafat Ramirez MD Discharge: Date of : 37 Report #: [id number] THIS REPORT FOR: //name// [facility] Test Date: 2019-02-10 Test Time: 08:45:08 Pat Name: RACHEAL FRANK Department: Room: [address] Gender: M Cognos Administrator: : 1935 Requested By: Eder Vanegas Order Number: [id number] Chris MD: Ish Catherine Measurements Intervals [place] Rate: 68 P: -34 MT: 210 QRS: 24 QRSD: 101 T: 57 QT: 411 QTc: 438 Interpretive Statements Sinus rhythm Atrial premature complex Possible left atrial enlargement Compared to ECG 02/09/2019 10:31:02 Atrial premature complex(es) now present Ventricular-paced complex(es) or rhythm no longer present Atrial fibrillation no longer present Electronically Signed On 02-10-2019 15:38:09 CDT by Ish Catherine [email or web address] <ELECTRONICALLY SIGNED> By: Ish Catherine MD, [facility] 02/10/19 1538 0845 0845 Ish Catherine MD, [facility] /EPI
--- NOTE | 2019-02-10 16:19 | NUR ---
PT PROGRESSING TOWARDS GOALS THIS SHIFT. NO C/O DIZZINESS. TELE SR. VSS, BLOOD PRESSURE SLIGHTLY SOFT AROUND NOON BUT HAS IMPROVED. MRI ORDERED BUT WAITING FOR AUTHORIZATION D/T PACEMAKER. SON AT BEDSIDE. NO OTHER CONCERNS AT THIS TIME. CLWR. WCTM.
--- NOTE | 2019-02-11 00:45 | NUR ---
PT ALERT OREINTED. UP AD ALEJANDRO IN ROOM. DENIES PAIN. TELEMETRY SHOWS SR.
[2019-02-11 04:00] VITALS: BP 125/63
[2019-02-11 08:00] VITALS: BP 115/63
--- NOTE | 2019-02-11 08:00 | NUR ---
ASSUMED CARE OF PT ASSESSED AND DOCUMENTED. PT IS ON CARDIAC MONITER TRACING SR HR 78. PT IS A&O WITH NO C/O PAIN. VSS WNL. PT IS AFEBRILE. HE IS ON ROOM AIR. BED IS IN LOW POSITION CALL LIGHT IS IN REACH. WM.
--- NOTE | 2019-02-11 10:54 | EKG ---
[place] [address] ELECTROCARDIOGRAM REPORT Name: RACHEAL FRANK Room: [address] ADM IN M.R.#: [id number] Admission: 02/09/19 Attend Phys: Josafat Ramirez MD Discharge: Date of : 37 Report #: [id number] THIS REPORT FOR: //name// [facility] Test Date: 2019-02-11 Test Time: 08:11:40 Pat Name: RACHEAL FRANK Department: Room: [address] Gender: M Chargeback Analyst: : 1935 Requested By: Eder Vanegas Order Number: [id number] Chris MD: Eder Vanegas Measurements Intervals [place] Rate: 75 P: -23 OK: 220 QRS: 20 QRSD: 94 T: 47 QT: 389 QTc: 435 Interpretive Statements Sinus rhythm Atrial premature complex Borderline prolonged OK interval Probable left atrial enlargement Compared to ECG 02/10/2019 08:45:08 No significant changes Electronically Signed On 02-11-2019 10:54:35 CDT by Eder Vanegas [email or web address] <ELECTRONICALLY SIGNED> By: Eder Vanegas MD, [facility] 02/11/19 1054 0811 0811 Eder Vanegas MD, [facility] /EPI
[2019-02-11] MEDS ORDERED: SORINE 80 MG TA80 M1 PO (11:17)
[2019-02-11 11:20] VITALS: BP 115/63
[2019-02-11 12:00] VITALS: BP 125/62
--- NOTE | 2019-02-11 15:25 | NUR ---
SENT DR MOURA YPU CALL. PT AND PTS SON DO NOT WANT PT TO GO HOME TODAY. HE IS C/O BEING DIZZY, NUBNESS AND PAIN IN HIS R ARM, AND HIS FEET FEEL IF THEY HAVE FALLEN ASLEEP. HE ALSO C/O PRESSURE ABOVE HIS R EYE. DR VALLE IS ORDERED AN EKG AND WILL OBSERVE PT TONIGHT.
[2019-02-11 16:00] VITALS: BP 109/54
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
--- NOTE | 2019-02-11 17:22 | NUR ---
PT HAS RESTED IN HIS ROOM WITH FAMILY AT BEDSIDE. PT HAD AN MRI TODAY. EDUCATION GIVEN ON DEMAND. HOURLY ROUNDING CONT.
[2019-02-11 20:00] VITALS: BP 126/57
[2019-02-12 00:16] VITALS: BP 106/52
[2019-02-12 04:00] VITALS: BP 116/52
--- NOTE | 2019-02-12 05:05 | NUR ---
ASSUMED CARE OF PT AFTER REPORT AT 1930. PT A&OX4. VSS. PHYSICAL ASSESSMENT COMPLETED AND CHARTED. PT ON RA. PT TRACING SR/PAC ON TELE. PT UPADLIB TO RESTROOM. PT DENIES ANY PAIN OR DISCOMFORT. HOURLY ROUNDING OBSERVED. CALL LIGHT WITHIN REACH.
[2019-02-12 05:38] LABS: CALCIUM 8.5 mg/dL (8.5-10.1); CREATININE 1.4 mg/dL (0.6-1.3)
[2019-02-12 07:58] VITALS: BP 93/66
[2019-02-12 13:01] VITALS: BP 96/62
--- NOTE | 2019-02-12 14:44 | EKG ---
[place] [address] ELECTROCARDIOGRAM REPORT Name: RACHEAL FRANK Room: [address] ADM IN M.R.#: [id number] Admission: 02/09/19 Attend Phys: Josafat Ramirez MD Discharge: Date of : 39 Report #: [id number] THIS REPORT FOR: //name// [facility] Test Date: 2019-02-11 Test Time: 15:44:18 Pat Name: RACHEAL FRANK Department: Room: [address] Gender: M Small Piece Cutter: : 1935 Requested By: Josafat Ramirez Order Number: [id number] Chris MD: Ish Catherine Measurements Intervals [place] Rate: 64 P: 17 OK: 181 QRS: 13 QRSD: 101 T: 46 QT: 406 QTc: 419 Interpretive Statements Sinus rhythm Baseline wander in lead(s) V2 Compared to ECG 02/11/2019 08:11:40 Atrial premature complex(es) no longer present Electronically Signed On 02-12-2019 14:43:52 CDT by Ish Catherine [email or web address] <ELECTRONICALLY SIGNED> By: Ish Catherine MD, FACC 02/12/19 1443 1544 1544 Ish Catherine MD, FAC /EPI
--- NOTE | 2019-02-12 15:41 | NUR ---
ASSUMED CARE OF PT AROUND 0730 THIS AM. REFER TO ASSESSMENT. PT HAS ORDERS TO DC ALTHOUGH HAS EPISODES OF SOFT BLOOD PRESSURES 90/50'S WITH NOTED DIZZINESS DURING THE EPISODES. WILL RE-EVAL DC PLANNING TOMORROW. 1/2 LITER BOLUS GIVEN THIS AM. PT AMBULATED WITH PHYSICAL THERAPY AND REPORTS DIZZINESS. C/O DIZZINESS AT REST WELL. NO OTHER CONCERNS AT THIS TIME. CLWR. WCTM.
[2019-02-12 16:32] VITALS: BP 125/99
--- NOTE | 2019-02-12 16:57 | NUR ---
PT REQUESTING TO GO HOME THIS EVENING. B/P STABLE AND PT HAS NO C/O DIZZINESS. PHYSICIAN CONTACTED AND OK WITH DC. HOLD LISINOPRIL TILL F/U WITH CARDIOLOGY. NO OTHER CONCERNS AT THIS TIME.
--- NOTE | 2019-02-12 17:08 | NUR ---
PT AND SON'S GIVEN DC INSTRUCTIONS AT THIS TIME AND VERBALIZES UNDERSTANDING. NO OTHER CONCERNS AT THIS TIME. CLWR. WCTM.
--- NOTE | 2019-02-12 17:56 | NUR ---
VSS, PT IV AND TELE MONITOR TAKEN OFF, PT WAS TAKEN OUT BU WHEEL CHAIR TO CAR WITH STAFF AND FAMILY,
--- NOTE | 2019-02-16 16:31 | CON ---
[address] [address] CONSULTATION Name: RACHEAL FRANK Room: [address] IN M.R.#: [id number] Admission: 02/09/19 Attend Phys: Josafat Ramirez MD Discharge: 02/12/19 Date of : 39 Report #: [id number] THIS REPORT FOR: //name// CC: Josafat Del Valle DATE OF SERVICE: 02/10/2019 HISTORY OF PRESENT ILLNESS: This is an 84-year-old male patient who was seen by me for evaluation for any neurological etiology for the patient's near syncope. His history is complicated. He indicates that he had an episode where he has pain on the right side of the head. It was behind right eye, then radiated to the back of his neck. It came spontaneously without any trauma. Then, he had a profuse cold sweating. He thought he was going to pass out and he called his son and daughter. After 15 minutes, he called an ambulance because he was getting worse and he came to the hospital. He is back to his baseline. He had a pacemaker put in last August. He was having these episodes before, but this has been a pretty severe episode. He has been in atrial fibrillation. Around that time, it is not clear if there was any arrhythmias, which can explain the patient's symptom. REVIEW OF SYSTEMS: A 14-point review of system was carried out and he has a history of hypertension, diabetes, hyperlipidemia, leg fracture. He has a history of atrial fibrillation. He does not believe that he has any new eye, ENT, respiratory, GI, , musculoskeletal, constitutional, dermatological, hematological, psychiatric, throat, allergic symptom associated with present symptomatology. PAST MEDICAL HISTORY: Positive for pacemaker placement. FAMILY HISTORY: Negative for any early age stroke. SOCIAL HISTORY: The patient does not smoke. He drinks alcohol in moderation about once a month. PHYSICAL EXAMINATION: Indicates he is alert. He is responsive. He can follow simple commands. His speech, concentration, fund of knowledge and memory is at his baseline. Cranial nerve examination 2-12 looks unremarkable. Strength, sensation, reflexes and tone are symmetrical, but reflexes are diminished in generalized fashion. There is no meningeal sign in this patient. Pulses are difficult to feel. He has no edema, cyanosis or jaundice. Cardiac examination is positive for pacemaker. No respiratory difficulty or rhonchi is present. He is a well-developed individual who does not have any dysmorphic features of eyes, ears and face. His vision and hearing looks adequate. His blood pressure is 118/58, respiration is 17, pulse is 70, and temperature is 97.5. [place] [address] CONSULTATION Name: RACHEAL FRANK Room: [address] IN ..#: [id number] Admission: 02/09/19 Attend Phys: Josafat Ramirez MD Discharge: 02/12/19 Date of : 39 Report #: [id number] LABORATORY DATA: His white count is 4.9 and his GFR is 53. IMPRESSION AND PLAN: This patient's symptom appeared to be related to cardiac problems, but the worrisome feature is that he had a headache on the onset and it was behind the right eye. Because of that, the possibility of aneurysm or a small bleed need to be excluded. I talked to animal caregiver and he indicated the pacemaker is MRI compatible. Because of that, I will prefer to do an MRI and MRA. I called the MRA and discussed with them and they said they will go ahead and do an MRA on this patient. If we find some abnormality in this patient, then we will proceed the management of that, but if we do not find any abnormality, then we need to concentrate on the patient's heart as the cause of the patient's symptom. All of it was discussed with the patient in detail and he understands it and wants to follow this plan. <ELECTRONICALLY SIGNED> By: Uziel Linder MD 02/16/19 [id number] Linder MD /nt
== END 2019-02-12 17:56 | disposition home or self-care (01) | DRG 309 ==
LOC: M.ERS 10:06 → M.2W 11:12 → M.TBA-ER 11:12 → M.2W 12:20
PROVIDERS: Emergency Medicine; ADMIT Internal Medicine
DX: T82.111A Breakdown (mechanical) of cardiac pulse generator (battery), initial encounter (principal); D68.69 Other thrombophilia; I13.0 Hypertensive heart and chronic kidney disease with heart failure and stage 1 through stage 4 chronic kidney disease, or unspecified chronic kidney disease; I48.91 Unspecified atrial fibrillation; N18.3 Chronic kidney disease, stage 3 (moderate); I50.9 Heart failure, unspecified; E78.5 Hyperlipidemia, unspecified; I49.5 Sick sinus syndrome; I87.8 Other specified disorders of veins; G47.33 Obstructive sleep apnea (adult) (pediatric); H53.8 Other visual disturbances; I49.9 Cardiac arrhythmia, unspecified; E11.22 Type 2 diabetes mellitus with diabetic chronic kidney disease; Y83.8 Other surgical procedures as the cause of abnormal reaction of the patient, or of later complication, without mention of misadventure at the time of the procedure; Y92.89 Other specified places as the place of occurrence of the external cause; Z87.81 Personal history of (healed) traumatic fracture; Z82.49 Family history of ischemic heart disease and other diseases of the circulatory system; Z95.0 Presence of cardiac pacemaker; Z87.891 Personal history of nicotine dependence; Z83.3 Family history of diabetes mellitus; Z23 Encounter for immunization